=== PATIENT | female | born 1995 | race Caucasian/White ===

== ENCOUNTER 2020-07-11 08:33 | Outpatient (CLI) | payer BC ==
--- NOTE | 2020-07-11 11:41 | MRI ---
MRI LEFT WRIST: Date: 07/11/2020 PROVIDED CLINICAL HISTORY: Dorsal wrist pain. FINDINGS: The dorsal extensor and volar flexor tendons demonstrate a normal MR appearance. Alignment appears anatomic. Joint spaces appear preserved. No focal concerning regional marrow or mus cular signal abnormality is evident. The amount of fluid within the mid carpal, radiocarpal, and distal radioulnar joints is physiologic. There is a circumscribed fluid signal intensity structure at the dorsal aspect of the carpus centered about the proximal carpal row located between the second and third dorsal extensor compartments. Whi le this is difficult to confirm as extracapsular on the basis of the sagittal images, the focality of the signal abnormality and lack of associated joint effusion favor ganglion cyst over joint recess. This also corresponds to the site of patient pain. There is a small ganglion cyst at the volar-radial aspect of the wrist measuring about 5.0 mm immedia tely radial to the flexor pollicis longus. The TFC complex, scapholunate ligament, and lunotriquetral ligament are suboptimally evaluated in the absence of joint distention. There is a somewhat irregular appearance to the TFC disc extending into the ulnar attachment. The courses of the regional major neurovascular structures appear unremarkable. IMPRESSION: 1. Probable ganglion cyst at the dorsum of the wrist as described. 2. Smaller ganglion cyst at the volar-radial aspect of the wrist as described. 3. Signal heterogeneity involving the TFC disc that may reflect nondisplaced tear. POS: AH
== END 2020-07-11 08:34 | disposition home or self-care (01) ==
LOC: MRI 08:33
PROVIDERS: ATTEND Orthopaedic Surgery
DX: M25.532 Pain in left wrist (principal); M67.432 Ganglion, left wrist

== ENCOUNTER 2020-07-24 10:14 | Outpatient (CLI) | payer BC, OTHER ==
[2020-07-24 18:05] LABS: #Lymphocytes 0.9 thou/uL (1.20-3.40); #Neutrophils 4.8 thou/uL (1.40-6.50); %Basophils 0.6 % (0.0-1.0); %Eosinophils 0.6 % (0.0-10.0); %Lymphocytes 13.3 % (21.0-51.0); %Monocytes 14.3 % (0.0-10.0); %Neutrophils 71.2 % (42.0-75.0); Hemoglobin 12.8 g/dL (12.0-16.0); Mean Corpuscular HGB CONC 33.2 g/dL (32.0-36.0); Mean Corpuscular Hemoglobin 30.9 pg (27.0-31.0); Mean Corpuscular Volume 92.8 fL (78.0-98.0); Mean Platelet Volume 6.8 fL (7.4-10.4); Platelet Count 280 thou/uL (130-400); RBC Distribution Width 11.5 % (11.5-14.5); Red Blood Cell (RBC) Count 4.15 mill/uL (4.20-5.40); White Blood Cell (WBC) Count 6.7 thou/uL (4.8-10.8)
[2020-07-24 18:25] LABS: BHCG - Serum Negative (NEGATIVE); Pregs Control Background? CLEAR/WHITE (CLR/WHITE); Pregs Control Bar Appear? YES (CONTROL BAR)
[2020-07-25 11:23] LABS: SARS-CoV-2 MS2 Positive; SARS-CoV-2 N Gene Positive; SARS-CoV-2 S Gene Positive; SARS-CoV-2 by NAA DETECTED (NotDetected); SARS-CoV-2 orf1ab Positive
== END 2020-07-24 10:15 | disposition home or self-care (01) ==
LOC: LABBT 10:14
PROVIDERS: ATTEND Orthopaedic Surgery Hand Surgery
DX: U07.1 COVID-19 (principal); S63.502A Unspecified sprain of left wrist, initial encounter; M67.432 Ganglion, left wrist
CPT/HCPCS: 84703; 85025; 87635; U0003

== ENCOUNTER 2020-08-29 11:37 | Day surgery (SDC) | payer BC ==
[2020-08-28 12:57] VITALS: BMI 31.0
[~2020-08-29 11:37] MED LIST: Bupivacaine HCl 0.5%/Epinephrine 1:200,000/PF 30 ml Vial ONE; Dexamethasone 20 MG/5 ML VIAL ONE; Ketorolac Tromethamine 30 MG/ML VIAL ONE; Lidocaine 1% PF 5 ML VIAL ONE; Ondansetron PF 4 MG/2 ML Vial ONE; PROPOFOL 200 MG/20 ML VIAL ONE
[2020-08-29] MEDS ORDERED: Midazolam HCl 2 mg/2 ml Vial ONE ×2 (12:42→14:22)
[2020-08-29] MEDS ORDERED: Fentanyl 100 MCG/2 ML VIAL ONE ×3 (12:42→15:20)
[2020-08-29] MEDS ORDERED: Bacitracin Zinc Ointment 30 gm TUBE ONE (14:47)
[2020-08-29] MEDS ORDERED: EPINEPHrine 1 MG/ML AMP ONE (14:47)
[2020-08-29] MEDS ORDERED: Betamet Acet/Betamet Na Ph 30 MG/5 ML VIAL ONE (14:47)
[2020-08-29] MEDS ORDERED: Bupivacaine PF 0.5% 30 ML VIAL ONE (14:48)
[2020-08-29] MEDS ORDERED: Ondansetron PF 4 MG/2 ML Vial ONE (18:29)
--- NOTE | 2020-09-01 11:34 | OP ---
DATE OF PROCEDURE: 08/29/2020 PREOPERATIVE DIAGNOSES: Left wrist ganglion with finding no TFCC tear on diagnostic arthroscopy. Left wrist ganglion 3 cm with large sessile stalk into the dorsal part of the confluence of the capitate and scapholunate area. Scapholunate ligament intact. PROCEDURE PERFORMED: 1. Left wrist diagnostic arthroscopy. 2. Left wrist open ganglion excision, dorsal, 3.0 cm ganglion with stalk as described above. TOURNIQUET TIME: 14 minutes. ESTIMATED BLOOD LOSS: 10 mL. DESCRIPTION OF PROCEDURE: After successful general endotracheal anesthesia, the patient had the limb prepped and draped. She was placed in in-line traction to expand the joint and then we established the 6U and 6R portals. Here, we visualized the carpus, there was no evidence of intercarpal ligament tear and no triangular fibrocartilage tear was felt. The radial articular surface had no defect. Removed the arthroscope. We then made a zigzag incision centered over the mass, carried through skin and subcutaneous tissue, small amount of tenosynovitis was removed and then we the extensor tendons to visualize the large 3 cm ganglion. It was removed en jose f. There was a large, almost 7 mm stalk connecting to the joint at the confluence of the capitate and scapholunate. We excised this leaving almost a 6 mm area of joint capsule loss as well. The intercarpal ligaments remained intact. There was no instability. Deflated the tourniquet. We obtained hemostasis. We placed 3 mL Celestone in the wound and joint. I then closed the wound in interrupted 4-0 nylon mattress pattern. A bulky dressing was applied along with a palmar splint in neutral position. She left the operating room without evidence of anesthetic or operative complication. Job ID: [id number]
== END 2020-08-29 19:00 | disposition home or self-care (01) ==
LOC: SDC 11:37
PROVIDERS: ATTEND Orthopaedic Surgery Hand Surgery
PROC: 0RJP4ZZ Inspection of Left Wrist Joint, Percutaneous Endoscopic Approach (ICD-10-PCS; principal; 2020-08-29)
PROC: 0LB60ZZ Excision of Left Lower Arm and Wrist Tendon, Open Approach (ICD-10-PCS; principal; 2020-08-29)
DX: M67.432 Ganglion, left wrist (principal); M65.88 Other synovitis and tenosynovitis, other site
CPT/HCPCS: 88304; J0171; J0690; J0702; J1100; J1885; J2250; J2405; J2704; J3010; J3370; S0020